=== PATIENT | female | born 1970 | race African-American/Black ===

== ENCOUNTER 2020-06-15 20:44 | Emergency (ER) | payer OTHER ==
--- OUTSIDE RECORDS SUMMARY | 2020-06-15 20:47 | XMS REPORT | Clinical Summary ---
:1970 Author Organization [facility] Address [address] [place] [id number] Care Team Providers Name Role Phone Unavailable Primary Care Provider Unavailable Allergies No Known Active Allergies Medications Medication Sig Dispensed Refills Start Date End Date Status omeprazole (PRILOSEC) Take 1 capsule by 30 capsule 0 2 Active 20 mg delayed release mouth daily. capsuleIndications: Abdominal pain Active Problems Problem Noted Date Abdominal pain 09/09/2011 Social History Tobacco Use Types Packs/Day Years Used Date Never Assessed Smokeless Tobacco: Current User Alcohol Use Drinks/Week oz/Week Comments No Sex Assigned at Date Recorded Not on file Last Filed Vital Signs Not on file Plan of Treatment Health Maintenance Due Date Last Done Comments HPV Cervical Cancer Scrn 1998 Pap Cervical Cancer Scrn 1998 Breast Cancer Scrn (Yearly) 2008 FIT Colorectal Cancer Scrn 2018 IMM Influenza Seasonal Feb to July (>/= 19 yrs) 02/04/2020 Results Not on fileafter 06/15/2019 Insurance Payer Benefit Plan / Subscriber ID Effective Phone Address T ype Group Dates [facility] [id number] 2017-Pres [phone] [address] [id number] [place] [address] [phone] (Work)
--- OUTSIDE RECORDS SUMMARY | 2020-06-15 20:47 | XMS REPORT | Continuity of Care Document ---
:1970 Author Organization [facility] t Address [address] [place] [address] Care Team Providers Name Role Phone Unavailable Unavailable Unavailable Payers Payer Name Policy Type Policy Number Effective Date Expiration Date S ource Problems Condition Condition Condition Status Onset Resolution Last Treating Co mments Source Name Details Category Date Date Treatment Clinician Date Abdominal Abdominal Disease Active [facility] pain pain 09-08 Health 00:00: 00 Allergies, Adverse Reactions, Alerts Allergy Allergy Status Severity Reaction(s) Onset Inactive Treating Comm ents Source Name Type Date Date Clinician No Known DA Active [facility] 8-30 [facility] Social History Social Habit Start Date Stop Date Quantity Comments Source Sex Assigned At [facility] alth Tobacco use and 2011-09-08 2011-09-08 Current user [facility] exposure 00:00:00 00:00:00 Alcohol intake 2011-09-08 2011-09-08 Current [facility] 00:00:00 00:00:00 non-drinker of alcohol (finding) Medications Ordered Filled Start Stop Current Ordering Indication Dosage Frequency Signature Comments Components Source Medication Medication Date Date Medication? Clinician (SIG) Name Name omeprazole Yes Abdominal 20mg QD Take 1 [place] (PRILOSEC) 09-08 pain capsule by [facility] 20 mg 00:00: mouth delayed 00 daily. release capsule Procedures This patient has no known procedures. Plan of Care Planned Activity Planned Date Details Comments Source Future Scheduled Test 2020-02-04 00:00:00 IMM Influenza [facility] Seasonal Feb to July (>/= 19 yrs) [code = IMM Influenza Seasonal Feb to July (>/= 19 yrs)] Future Scheduled Test 2018 00:00:00 Screening for [facility] malignant neoplasm of colon (procedure) [code = 657694673] Future Scheduled Test 2008 00:00:00 Breast Cancer Scrn [facility] (Yearly) [code = Breast Cancer Scrn (Yearly)] Future Scheduled Test 1998 00:00:00 Screening for [facility] malignant neoplasm of cervix (procedure) [code = 413099652] Future Scheduled Test 1998 00:00:00 Screening for [facility] malignant neoplasm of cervix (procedure) [code = 322095759] Encounters Start End Encounter Admission Attending Care Care Encounter Source Date/Time Date/Time Type Type Clinicians Facility Department ID 2017-11-16 2017-11-16 Emergency [facility] [id number] [place] 21:16:55 21:16:55 Health Results This patient has no known results.
[2020-06-15 21:11] LABS: Absolute Lymphocytes (CBC) 2.9 K/uL (0.7-4.9); Basophils % 0.4 % (0-1.3); Hematocrit 38.5 % (36.0-45.0); Lymphocytes % 35.9 % (15.3-44.8); RBC Red Blood Cell Count 4.95 M/uL (3.86-4.86)
[2020-06-15 21:45] LABS: Potassium 3.3 mmol/L (3.5-5.1)
[2020-06-15] MEDS ORDERED: NA CHLORIDE 0.9% 1,000 ML ONE (22:21)
[2020-06-15] MEDS ORDERED: KETOROLAC 30 MG/ML INJ ONE (22:32)
[2020-06-15] MEDS ORDERED: FENTANYL CITR 100 MCG/2 ML ONE (22:45)
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
[2020-06-16 00:54] VITALS: TEMP 97.2
[2020-06-16 00:58] VITALS: BP 167/96; O2SAT 99
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
== END 2020-06-16 00:50 | disposition home or self-care (01) ==
LOC: ER 20:44
DX: S32.059A Unspecified fracture of fifth lumbar vertebra, initial encounter for closed fracture (principal); S32.049A Unspecified fracture of fourth lumbar vertebra, initial encounter for closed fracture; S32.039A Unspecified fracture of third lumbar vertebra, initial encounter for closed fracture; S32.029A Unspecified fracture of second lumbar vertebra, initial encounter for closed fracture; S80.811A Abrasion, right lower leg, initial encounter; V03.90XA Pedestrian on foot injured in collision with car, pick-up truck or van, unspecified whether traffic or nontraffic accident, initial encounter; Y93.01 Activity, walking, marching and hiking; Y92.410 Unspecified street and highway as the place of occurrence of the external cause
CPT/HCPCS: 96361; 85025; 80048; 36415; 86900; 86850; 82565; 86901; 70450; 72125; 71260; 74177; 73590; 96375; 96374; 99284; Q9967; J3010; J7030; G0390

== ENCOUNTER 2020-08-11 19:09 | Emergency (ER) | payer OTHER ==
--- OUTSIDE RECORDS SUMMARY | 2020-08-11 19:11 | XMS REPORT | Continuity of Care Document ---
:1970 Author Organization [facility] t Address [address] [place] [address] Care Team Providers Name Role Phone Johnathon EM Attending Clinician Payers Payer Name Policy Type Policy Number Effective Date Expiration Date [facility] [id number] 2017 [facility] 00:00:00 [facility] [employer] [id number] [address] Problems Condition Condition Condition Status Onset Resolution Last Treating Co mments Source Name Details Category Date Date Treatment Clinician Date Abdominal Abdominal Disease Active [facility] pain pain 09-08 Health 00:00: 00 Homeless Homeless Disease Active [facility] Allergies, Adverse Reactions, Alerts Allergy Allergy Status Severity Reaction(s) Onset Inactive Treating Comm ents Source Name Type Date Date Clinician No Known DA Active [facility]ie 01-02 [facility] 00:00: e 00 [facility] Social History Social Habit Start Date Stop Date Quantity Comments Source Sex Assigned At [facility] alth Exposure to Not sure [facility] SARS-CoV-2 (event) Tobacco use and 2011-09-08 2011-09-08 Current user [facility] exposure 00:00:00 00:00:00 Alcohol intake 2011-09-08 2011-09-08 Current [facility] 00:00:00 00:00:00 non-drinker of alcohol (finding) Medications Ordered Filled Start Stop Current Ordering Indication Dosage Frequency Signature Comments Components Source Medication Medication Date Date Medication? Clinician (SIG) Name Name omeprazole Yes Abdominal 20mg QD Take 1 [place] (PRILOSEC) 09-08 pain capsule by [facility] 20 mg 00:00: mouth delayed 00 daily. release capsule Vital Signs Vital Name Observation Time Observation Value Comments Source Systolic blood pressure 2020-07-21 22:22:00 155 mm[Hg] [facility] Diastolic blood pressure 2020-07-21 22:22:00 86 mm[Hg] [facility] Heart rate 2020-07-21 22:22:00 69 /min [facility] Body temperature 2020-07-21 22:22:00 36.94 Debbie Orquidea is [facility] Respiratory rate 2020-07-21 22:22:00 16 /min [facility] is [facility] Oxygen saturation in 2020-07-21 22:22:00 100 /min [facility] Arterial blood by Pulse oximetry Body height 2020-07-21 19:46:00 172.7 cm [facility] Procedures Procedure Date / Time Performed Performing Clinician [facility] CONSULT CLINICAL CASE 2020-07-21 20:50:07 Jose Guadalupe Diego [facility] MANAGEMENT (RN/SW) Plan of Care Planned Activity Planned Date Details Comments Source Future Scheduled Test 2021-02-03 00:00:00 IMM Influenza [facility] Seasonal Feb to July (>/= 19 yrs) [code = IMM Influenza Seasonal Feb to July (>/= 19 yrs)] Future Scheduled Test 2018 00:00:00 Screening for [facility] malignant neoplasm of colon (procedure) [code = 648558857] Future Scheduled Test 2008 00:00:00 Breast Cancer Scrn [facility] (Yearly) [code = Breast Cancer Scrn (Yearly)] Future Scheduled Test 1998 00:00:00 Screening for [facility] malignant neoplasm of cervix (procedure) [code = 099919846] Future Scheduled Test 1998 00:00:00 Screening for [facility] malignant neoplasm of cervix (procedure) [code = 103981117] Future Scheduled Test 1984 00:00:00 COVID-19 Vaccine (1) [facility] [code = COVID-19 Vaccine (1)] Encounters Start End Encounter Admission Attending Care Care Encounter Source Date/Time Date/Time Type Type Clinicians Facility Department ID 2017-11-16 2017-11-16 Emergency [facility] [id number] [address] [place] [address] 21:16:55 21:16:55 Health Results This patient has no known results.
--- NOTE | 2020-08-11 22:24 | ER ---
Nurse's Notes [facility] Name: Charito Holloway Age: 50 yrs Sex: Female : 1970 Arrival Date: 08/11/2020 Time: 19:12 Bed 15 Private MD: Diagnosis: Insomnia;Delusional disorders Presentation: 08/11 19:38 Chief complaint: Patient states: pt states she is here for sleep medicine , mother iw states she has not been on her meds for two months , went to [facility] today and was told they were going to give her the medicine but she left , they said she needed to be sent to the hospital , has not had any sleep in 3-4 days. Coronavirus screen: At this time, the client does not indicate any symptoms associated with coronavirus-19. Ebola Screen: Patient negative for fever greater than or equal to 101.5 degrees Fahrenheit, and additional compatible Ebola Virus Disease symptoms Patient denies exposure to infectious person. Patient denies travel to an Ebola-affected area in the 21 days before illness onset. No symptoms or risks identified at this time. 19:38 Method Of Arrival: Ambulatory iw 19:40 Initial Sepsis Screen: Does the patient meet any 2 criteria? No. Patient's initial iw sepsis screen is negative. Does the patient have a suspected source of infection? No. Patient's initial sepsis screen is negative. Risk Assessment: Do you want to hurt yourself or someone else? Patient reports no desire to harm self or others. Onset of symptoms was August 11, 2020. 19:40 Acuity: DEL 3 iw Historical: - Allergies: 19:40 No Known Allergies; iw - PMHx: 19:40 HTN; insomnia; iw - PSHx: 19:40 Tubal ligation; iw - Immunization history:: Adult Immunizations. - Social history:: Smoking status: Patient reports the use of cigarette tobacco products, smokes two packs cigarettes per day. Patient/guardian denies using alcohol, street drugs, The patient lives with family. - Family history:: not pertinent. Screenin:45 Abuse screen: Denies threats or abuse. Nutritional screening: No deficits noted. jb4 Tuberculosis screening: No symptoms or risk factors identified. Fall Risk None identified. Assessment: 21:45 General: Appears in no apparent distress. comfortable, Behavior is calm, cooperative, jb4 appropriate for age. Pain: Denies pain. Neuro: Level of Consciousness is awake, alert, obeys commands, Oriented to person, place, time, situation. Cardiovascular: Patient's skin is warm and dry. Respiratory: Airway is patent Respiratory effort is even, unlabored, Respiratory pattern is regular, symmetrical. GI: No signs and/or symptoms were reported involving the gastrointestinal system. : No signs and/or symptoms were reported regarding the genitourinary system. EENT: No signs and/or symptoms were reported regarding the EENT system. Derm: Skin is intact, Skin is dry, Skin is normal, Skin temperature is warm. Musculoskeletal: Circulation, motion, and sensation intact. Range of motion:. 22:39 Reassessment: Patient appears in no apparent distress at this time. Patient and/or jb4 family updated on plan of care and expected duration. Pain level reassessed. Patient is alert, oriented x 3, equal unlabored respirations, skin warm/dry/pink. Psych: 21:45 [place] Suicide Severity Screening: In the past month, have you wished you were jb4 or wished you could go to sleep and not wake up? Patient responds "No." "In the past month, have you actually had any thoughts of killing yourself?" Patient responds "no." "In your lifetime, have you ever done anything, started to do anything, or prepared to do anything to end your life?" Patient responds "no.". Subjective: Patient's mood is elevated. Objective: Patient is cooperative, Speech is rambling, Affect is appropriate. Interventions:. Safety Checks: Visitors are present. Pt denies substance abuse. Vital Signs: 19:38 BP 167 / 93; Pulse 92; Resp 16; Temp 98.3; Pulse Ox 100% on R/A; Weight 84.82 kg; iw Height 5 ft. 8 in. (172.72 cm); 19:38 Body Mass Index 28.43 (84.82 kg, 172.72 cm) iw ED Course: 19:12 Patient arrived in ED. bp1 19:40 Triage completed. iw 21:17 Ketty Martinez MD is Attending Physician. ma2 21:45 Patient has correct armband on for positive identification. Bed in low position. Call jb4 light in reach. Side rails up X 1. 21:53 Brant, Sameer, RN is Primary Nurse. jb4 22:39 No provider procedures requiring assistance completed. Patient did not have IV access jb4 during this emergency room visit. Administered Medications: 22:24 Drug: Ativan 2 mg Route: PO; jb4 22:38 Follow up: Response: Medication administered at discharge. jb4 22:31 Drug: RisperDAL 2 mg Route: PO; jb4 22:37 Follow up: Response: Medication administered at discharge. jb4 Outcome: 22:23 Discharge ordered by . ma2 22:39 Discharged to home with family. jb4 22:39 Condition: stable 22:39 Discharge instructions given to patient, family, Instructed on discharge instructions, follow up and referral plans. medication usage, Demonstrated understanding of instructions, follow-up care, medications, Prescriptions given X 3. 22:41 Patient left the ED. jb4 Signatures: Ludivina Garduno RN RN iw Sameer Guo RN RN jb4 Ketty Martinez MD MD ma2 Vida Gallardo [facility] Corrections: (The following items were deleted from the chart) 19:41 19:38 BP 167 / 93; Pulse 92bpm; Resp 16bpm; Temp 98.3F; iw iw 22:39 21:45 General: Appears in no apparent distress. comfortable, Behavior is calm, jb4 cooperative, appropriate for age, jb4
--- NOTE | 2020-08-11 22:24 | EDPHYS ---
Physician Documentation [facility] Name: Charito Holloway Age: 50 yrs Sex: Female : 1970 Arrival Date: 08/11/2020 Time: 19:12 Bed 15 Private MD: ED Physician Ketty Martinez HPI: 08/11 22:18 This 50 yrs old Black Female presents to ER via Ambulatory with complaints of Psych ma2 Problem. 22:18 Onset: The symptoms/episode began/occurred gradually, 1 week(s) ago. Associated signs ma2 and symptoms: Pertinent negatives: chest pain, delusions, headache, suicide ideation, vomiting. Severity of symptoms: At their worst the symptoms were mild in the emergency department the symptoms are unchanged. The patient has not experienced similar symptoms in the past. has schizophrenia and not taking her medication for 2 months, no si or hi at this time . Historical: - Allergies: 19:40 No Known Allergies; iw - PMHx: 19:40 HTN; insomnia; iw - PSHx: 19:40 Tubal ligation; iw - Immunization history:: Adult Immunizations. - Social history:: Smoking status: Patient reports the use of cigarette tobacco products, smokes two packs cigarettes per day. Patient/guardian denies using alcohol, street drugs, The patient lives with family. - Family history:: not pertinent. ROS: 22:18 Constitutional: Negative for fever, chills, and weight loss. ma2 22:18 All other systems are negative. Exam: 22:18 Constitutional: This is a well developed, well nourished patient who is awake, alert, ma2 and in no acute distress. Chest/axilla: Normal chest wall appearance and motion. Nontender with no deformity. No lesions are appreciated. Cardiovascular: Regular rate and rhythm with a normal S1 and S2. No gallops, murmurs, or rubs. Normal PMI, no JVD. No pulse deficits. Respiratory: Lungs have equal breath sounds bilaterally, clear to auscultation and percussion. No rales, rhonchi or wheezes noted. No increased work of breathing, no retractions or nasal flaring. Abdomen/GI: Soft, non-tender, with normal bowel sounds. No distension or tympany. No guarding or rebound. No evidence of tenderness throughout. Back: No spinal tenderness. No costovertebral tenderness. Full range of motion. Skin: Warm, dry with normal turgor. Normal color with no rashes, no lesions, and no evidence of cellulitis. MS/ Extremity: Pulses equal, no cyanosis. Neurovascular intact. Full, normal range of motion. Neuro: Awake and alert, GCS 15, oriented to person, place, time, and situation. Cranial nerves II-XII grossly intact. Motor strength 5/5 in all extremities. Sensory grossly intact. Cerebellar exam normal. Normal gait. 22:18 Psych: Awake, alert, oriented x 4, has delusion, yet calm no si or hi ma2 Vital Signs: 19:38 BP 167 / 93; Pulse 92; Resp 16; Temp 98.3; Pulse Ox 100% on R/A; Weight 84.82 kg; iw Height 5 ft. 8 in. (172.72 cm); 19:38 Body Mass Index 28.43 (84.82 kg, 172.72 cm) iw MDM: 21:17 Patient medically screened. ma2 22:18 Differential diagnosis: drug withdrawal. acute psychotic break, psychosis secondary to ma2 non-compliance. Data reviewed: vital signs, nurses notes. Counseling: I had a detailed discussion with the patient and/or guardian regarding: the historical points, exam findings, and any diagnostic results supporting the discharge/admit diagnosis, the presence of at least one elevated blood pressure reading (>120/80) during this emergency department visit, the need for outpatient follow up. Response to treatment: the patient's symptoms have markedly improved after treatment. ED course: insomnia, no cough. ED course: patient does not want [employer] work or [employer] eval, or waiting or transfer. she does not have any symptoms that qualify for tang, no si hi or severe avh.. Administered Medications: 22:24 Drug: Ativan 2 mg Route: PO; jb4 22:38 Follow up: Response: Medication administered at discharge. jb4 22:31 Drug: RisperDAL 2 mg Route: PO; jb4 22:37 Follow up: Response: Medication administered at discharge. jb4 Disposition: 08/11/20 22:23 Discharged to Home. Impression: Insomnia, Delusional disorders. - Condition is Stable. - Discharge Instructions: Insomnia, Bipolar Disorder, Psychosis. - Prescriptions for melatonin - take 1 tablet by ORAL route Every night; 30 tablet. Benadryl 25 mg Oral Capsule - take 1 capsule by ORAL route every 6 hours As needed; 30 tablet. risperidone 2 mg Oral tablet - take 1 tablet by ORAL route once daily; 60 tablet. - Medication Reconciliation Form, Thank You Letter, Antibiotic Education, Prescription Opioid Use form. - Follow up: Private Physician; When: Tomorrow; Reason: If symptoms return, Continuance of care. Signatures: Ludivina Garduno RN RN Sameer Guo RN RN jb4 Ketty Martinez MD MD ma2 Corrections: (The following items were deleted from the chart) 22:41 22:23 08/11/2020 22:23 Discharged to Home. Impression: Insomnia; Delusional disorders. jb4 Condition is Stable. Prescriptions for melatonin - take 1 tablet by ORAL route Every night; 30 tablet, Benadryl 25 mg Oral Capsule - take 1 capsule by ORAL route every 6 hours As needed; 30 tablet, risperidone 2 mg Oral tablet - take 1 tablet by ORAL route once daily; 60 tablet. and Forms are Medication Reconciliation Form, Thank You Letter, Antibiotic Education, Prescription Opioid Use. Follow up: Private Physician; When: Tomorrow; Reason: If symptoms return, Continuance of care. ma2
[2020-08-11] MEDS ORDERED: LORAZEPAM 1 MG TABLET ONE (22:40)
[2020-08-11] MEDS ORDERED: RISPERIDONE 1 MG TABLET ONE (22:44)
[2020-08-12 09:31] VITALS: BP 167/93; TEMP 98.3; O2SAT 100
== END 2020-08-11 22:41 | disposition home or self-care (01) ==
LOC: ER 19:09
DX: F22 Delusional disorders (principal); F20.9 Schizophrenia, unspecified; I10 Essential (primary) hypertension; F17.210 Nicotine dependence, cigarettes, uncomplicated
CPT/HCPCS: 99283

== ENCOUNTER 2021-02-28 19:34 | Emergency (ER) | payer OTHER ==
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
--- NOTE | 2021-02-28 20:30 | RAD REPORT ---
EXAM DESCRIPTION: RAD - Femur Right - 02/28/2021 8:20 pm CLINICAL HISTORY: PAIN COMPARISON: No comparisons FINDINGS: No acute fracture. No malalignment. Medial compartment narrowing and spurring. IMPRESSION: No acute osseous abnormality involving the right knee.
[2021-02-28] MEDS ORDERED: TETANUS & DIPHTHERIA TOX,ADULT 0.5 ML VIAL ONE (20:36)
[2021-02-28] MEDS ORDERED: CEPHALEXIN 250 MG CAP ONE (20:36)
[2021-02-28] MEDS ORDERED: IBUPROFEN 200 MG TAB PO ONE (20:36)
[2021-02-28] MEDS ORDERED: IBUPROFEN 400 MG TAB ONE (20:36)
[2021-02-28 21:37] VITALS: TEMP 98.8; O2SAT 100
[2021-02-28 21:39] VITALS: BP 132/88
== END 2021-02-28 21:29 | disposition home or self-care (01) ==
LOC: ER 19:34
DX: S71.111A Laceration without foreign body, right thigh, initial encounter (principal); W26.0XXA Contact with knife, initial encounter; Y93.89 Activity, other specified; Y92.009 Unspecified place in unspecified non-institutional (private) residence as the place of occurrence of the external cause; F20.9 Schizophrenia, unspecified; I10 Essential (primary) hypertension; F17.210 Nicotine dependence, cigarettes, uncomplicated; Z23 Encounter for immunization
CPT/HCPCS: 87070; 87205; 90471; 90714; 99283